=== PATIENT | male | born 2000 | race American Indian/Alaskan Native ===

== ENCOUNTER 2021-06-08 15:27 | Emergency (ER) | payer BC ==
[~2021-06-08] VITALS: Ht 188 cm; Wt 80.9 kg
[2021-06-08 15:57] VITALS: TEMP 98.3
[2021-06-08 16:39] VITALS: BP 135/86; PULSE 84
== END 2021-06-08 16:40 | disposition home or self-care (01) ==
LOC: COL.ER 15:27
DX: S06.0X1A Concussion with loss of consciousness of 30 minutes or less, initial encounter (principal); S00.81XA Abrasion of other part of head, initial encounter; S60.512A Abrasion of left hand, initial encounter; V19.9XXA Pedal cyclist (driver) (passenger) injured in unspecified traffic accident, initial encounter